=== PATIENT | female | born 1985 | race Caucasian/White ===

== ENCOUNTER 2019-05-08 15:25 | Inpatient (IN) | payer MEDICAID ==
[2019-05-08 16:44] LABS: ADD UMIC NO; UR ASCORBIC ACID NEGATIVE (NEGATIVE); UR BILIRUBIN (Dip) NEGATIVE (NEGATIVE); UR BLOOD (Dip) NEGATIVE (NEGATIVE); UR CLARITY CLEAR (CLEAR); UR COLOR YELLOW (YELLOW); UR GLUCOSE (Dip) NEGATIVE (NEGATIVE); UR KETONES (Dip) NEGATIVE (NEGATIVE); UR LEUKOCYTE ESTERASE (Dip) NEGATIVE Leu/ul (NEGATIVE); UR NITRITE (Dip) NEGATIVE (NEGATIVE); UR SPECIFIC GRAVITY (Dip) 1.004 (1.003-1.030); UR TOTAL PROTEIN (Dip) NEGATIVE (NEGATIVE); UR UROBILINOGEN (Dip) NEGATIVE (NEGATIVE)
[2019-05-08] MEDS ORDERED: MAGNESIUM SULFATE 4 GM/100 ML 100 ML (17:39)
[2019-05-08] MEDS: MAGNESIUM SULFATE 4 GM/100 ML 100 ML IV (17:48)
[2019-05-08] MEDS: LACTATED RINGER'S 1,000 ML IV (17:54)
[2019-05-08 18:08] LABS: ADD MAN DIFF? NO
[2019-05-08 18:09] LABS: BASOPHILS % 0.3 % (0.0-2.0); EOSINOPHILS # 0.1 10^3/ul (0.0-0.5); EOSINOPHILS % 1.2 % (0.0-7.0); HEMATOCRIT 39.4 % (37.0-47.0); HEMOGLOBIN 13.4 g/dl (12.0-16.0); LYMPHOCYTES # 1.6 10^3/ul (0.8-2.9); LYMPHOCYTES % 13.6 % (15.0-51.0); MEAN CORPUSCULAR HEMOGLOBIN 31.7 pg (29.0-33.0); MEAN CORPUSCULAR VOLUME 93.1 fl (82.0-101.0); MEAN PLATELET VOLUME 11.2 fl (7.4-10.4); MONOCYTE # 0.9 10^3/ul (0.3-0.9); MONOCYTES % 7.3 % (0.0-11.0); NEUTROPHILS % 76.8 % (39.0-77.0); PLATELET COUNT 271 10^3/UL (140-415); RED BLOOD COUNT 4.23 10^6/ul (4.20-5.40); RED CELL DISTRIBUTION WIDTH 13.5 % (11.5-14.5)
[2019-05-08 18:09] LABS: WHITE BLOOD COUNT 11.7 10^3/ul (4.8-10.8)
[2019-05-08] MEDS: MAGNESIUM SULFATE 20 GM/500 ML 500 ML IV (18:14)
[2019-05-08 18:34] LABS: INR 0.96; PROTIME 12.9 Sec (11.9-14.9)
[2019-05-08 18:35] LABS: PARTIAL THROMBOPLASTIN TIME 28.6 Sec (23.0-35.0)
[2019-05-08 18:37] LABS: ALANINE AMINOTRANSFERASE 20 IU/L (13-69); ALBUMIN 3.9 g/dl (3.3-4.9); ALBUMIN/GLOBULIN RATIO 0.97; ALKALINE PHOSPHATASE 164 IU/L (42-121); ANION GAP 11 (5-13); ASPARTATE AMINO TRANSFERASE 37 IU/L (15-46); BILIRUBIN,INDIRECT 0.6 mg/dl (0-1.1); BILIRUBIN,TOTAL 0.6 mg/dl (0.2-1.3); BLOOD UREA NITROGEN 9 mg/dl (7-20); CALCIUM 9.3 mg/dl (8.4-10.2); CARBON DIOXIDE 21 mmol/L (21-31); CHLORIDE 103 mmol/L (97-110); CREATININE 0.61 mg/dl (0.44-1.00); Estimated GFR > 60 mL/min (>60); GLUCOSE 70 mg/dl (70-220); POTASSIUM 4.2 mmol/L (3.5-5.1); SODIUM 135 mmol/L (135-144); TOTAL PROTEIN 7.9 g/dl (6.1-8.1)
[2019-05-08] MEDS: BETAMET NA PHOS/AC(6 MG/ML) 2 ML INJ SYG IM (19:58)
[2019-05-08] MEDS: ACETAMINOPHEN 500 MG TAB PO (22:18)
[2019-05-09] MEDS: MAGNESIUM SULFATE 20 GM/500 ML 500 ML IV (03:51)
[2019-05-09] MEDS: LACTATED RINGER'S 1,000 ML IV ×2 (05:43→18:39)
[2019-05-09] MEDS: ACETAMINOPHEN 500 MG TAB PO ×2 (05:47→13:08)
[2019-05-09] MEDS: BETAMET NA PHOS/AC(6 MG/ML) 2 ML INJ SYG IM (08:19)
[2019-05-09 08:57] LABS: MAGNESIUM 5.4 mg/dl (1.7-2.5)
[2019-05-09] MEDS: INDOMETHACIN 50 MG PO (12:18)
[2019-05-09] MEDS ORDERED: NIFEdipine 10 MG CAP (18:18)
[2019-05-09] MEDS ORDERED: SENNA/DOCUSATE NA (8.6MG/50MG) TAB (18:25)
[2019-05-09] MEDS: INDOMETHACIN 25 MG PO ×2 (18:34→23:42)
[2019-05-09] MEDS: NIFEdipine 10 MG CAP PO ×2 (18:35→23:45)
[2019-05-10] MEDS: morphine 2 MG INJ IV (02:13)
[2019-05-10] MEDS: LACTATED RINGER'S 1,000 ML IV (03:26)
[2019-05-10] MEDS: SENNA TAB PO ×2 (03:43→15:00)
[2019-05-10] MEDS: INDOMETHACIN 25 MG PO (05:51)
[2019-05-10] MEDS: NIFEdipine 10 MG CAP PO (05:52)
[2019-05-10] MEDS ORDERED: MAGNESIUM SULFATE 20 GM/500 ML 500 ML IV (08:25)
[2019-05-10] MEDS ORDERED: MAGNESIUM SULFATE 4 GM/100 ML 100 ML (08:25)
[2019-05-10] MEDS: MAGNESIUM SULFATE 4 GM/100 ML 100 ML IV (08:39)
[2019-05-10] MEDS: MAGNESIUM SULFATE 20 GM/500 ML 500 ML IV (08:57)
[2019-05-10] MEDS ORDERED: CEFAZOLIN 2 GM/50 ML (PMX) 50 ML IVPB ×2 (09:32→10:00)
[2019-05-10] MEDS ORDERED: AZITHROMYCIN 500MG/NS (PMX) 250 ML (09:47)
[2019-05-10] MEDS ORDERED: PHENYLephrine (100 MCG/ML) 10ML SYG (09:52)
[2019-05-10] MEDS ORDERED: FENTAnyl 50 MCG/ML VIAL (09:52)
[2019-05-10] MEDS ORDERED: morphine SULFATE/PF (10 MG/10 ML) INJ (09:52)
[2019-05-10] MEDS ORDERED: DEXAMETHASONE 4 MG/ML 1 ML INJ (09:52)
[2019-05-10] MEDS ORDERED: ONDANSETRON 4 MG INJ (09:56)
[2019-05-10] MEDS ORDERED: OXYTOCIN 30 UNITS/LR 500 ML IV ×2 (09:57→14:30)
[2019-05-10] MEDS: AZITHROMYCIN 500MG/NS (PMX) 250 ML IVPB (10:00)
[2019-05-10] MEDS ORDERED: METHYLERGONOVINE 0.2 MG TAB (10:32)
[2019-05-10] MEDS: OXYTOCIN 30 UNITS/LR 500 ML IV ×2 (12:05→16:32)
[2019-05-10] MEDS ORDERED: ONDANSETRON 4 MG INJ IV (12:30)
[2019-05-10] MEDS ORDERED: ZOLPIDEM 5 MG TAB PO (12:30)
[2019-05-10] MEDS ORDERED: HYDROmorphONE 0.5 MG/0.5 ML SYG IV ×2 (12:30)
[2019-05-10] MEDS ORDERED: NALOXONE (0.4 MG/ML) INJ IV (12:30)
[2019-05-10] MEDS ORDERED: METHYLERGONOVINE 0.2 MG INJ IM (14:30)
[2019-05-10] MEDS ORDERED: MISOPROSTOL 200 MCG TAB PR (14:30)
[2019-05-10] MEDS ORDERED: CARBOPROST 250 MCG INJ IM (14:30)
[2019-05-10] MEDS: KETOROLAC 30 MG INJ IV (16:30)
[2019-05-10 19:32] LABS: MAGNESIUM 2.2 mg/dl (1.7-2.5)
[2019-05-10] MEDS: SENNA/DOCUSATE NA (8.6MG/50MG) TAB PO (23:27)
[2019-05-11] MEDS: LACTATED RINGER'S 1,000 ML IV (02:24)
[2019-05-11] MEDS: DIPHENHYDRAMINE 50 MG INJ IV (02:41)
[2019-05-11] MEDS: LANOLIN HPA 1 PKT TOP ×2 (02:41→08:07)
[2019-05-11 08:01] LABS: ADD MAN DIFF? NO
[2019-05-11 08:04] LABS: WHITE BLOOD COUNT 8.3 10^3/ul (4.8-10.8)
[2019-05-11 08:04] LABS: BASOPHILS % 0.1 % (0.0-2.0); HEMATOCRIT 25.3 % (37.0-47.0); HEMOGLOBIN 8.5 g/dl (12.0-16.0); LYMPHOCYTES # 1.3 10^3/ul (0.8-2.9); LYMPHOCYTES % 15.1 % (15.0-51.0); MEAN CORPUSCULAR HGB CONC 33.6 g/dl (32.0-37.0); MEAN CORPUSCULAR VOLUME 95.1 fl (82.0-101.0); MEAN PLATELET VOLUME 10.1 fl (7.4-10.4); MONOCYTE # 0.9 10^3/ul (0.3-0.9); MONOCYTES % 11.4 % (0.0-11.0); NEUTROPHILS % 72.3 % (39.0-77.0); PLATELET COUNT 174 10^3/UL (140-415); RED BLOOD COUNT 2.66 10^6/ul (4.20-5.40); RED CELL DISTRIBUTION WIDTH 13.5 % (11.5-14.5)
[2019-05-11] MEDS: SENNA/DOCUSATE NA (8.6MG/50MG) TAB PO ×2 (08:07→21:00)
[2019-05-11] MEDS: KETOROLAC 30 MG INJ IV (08:08)
[2019-05-11] MEDS: FERROUS SULFATE (EC) 325 MG TAB PO ×2 (13:23→21:00)
[2019-05-11] MEDS: IBUPROFEN 800 MG TAB PO ×2 (13:24→21:00)
[2019-05-11 14:45] LABS: ADD MAN DIFF? NO
[2019-05-11 14:47] LABS: WHITE BLOOD COUNT 7.5 10^3/ul (4.8-10.8)
[2019-05-11 14:47] LABS: BASOPHILS % 0.3 % (0.0-2.0); EOSINOPHILS % 0.1 % (0.0-7.0); HEMATOCRIT 26.1 % (37.0-47.0); HEMOGLOBIN 8.7 g/dl (12.0-16.0); LYMPHOCYTES # 1.3 10^3/ul (0.8-2.9); LYMPHOCYTES % 17.8 % (15.0-51.0); MEAN CORPUSCULAR HGB CONC 33.3 g/dl (32.0-37.0); MEAN PLATELET VOLUME 10.4 fl (7.4-10.4); MONOCYTE # 0.6 10^3/ul (0.3-0.9); MONOCYTES % 7.9 % (0.0-11.0); NEUTROPHIL # 5.4 10^3/ul (1.6-7.5); NEUTROPHILS % 72.6 % (39.0-77.0); PLATELET COUNT 178 10^3/UL (140-415); RED BLOOD COUNT 2.72 10^6/ul (4.20-5.40); RED CELL DISTRIBUTION WIDTH 13.5 % (11.5-14.5)
[2019-05-11] MEDS: OXYCODONE/ACETAMINOPHEN (5/325) TAB PO ×2 (16:31→20:44)
[2019-05-11] MEDS: FOLIC ACID 1 MG TAB PO (16:31)
[2019-05-12 00:11] LABS: HEPATITIS B SURFACE ANTIGEN NEGATIVE (NEGATIVE)
[2019-05-12] MEDS: IBUPROFEN 800 MG TAB PO ×3 (05:37→21:57)
[2019-05-12] MEDS: SENNA/DOCUSATE NA (8.6MG/50MG) TAB PO ×2 (09:00→20:59)
[2019-05-12] MEDS: FERROUS SULFATE (EC) 325 MG TAB PO ×3 (11:26→20:59)
[2019-05-12] MEDS: FOLIC ACID 1 MG TAB PO (11:26)
[2019-05-12] MEDS: OXYCODONE/ACETAMINOPHEN (5/325) TAB PO ×3 (11:27→20:09)
[2019-05-12 16:15] LABS: RAPID PLASMA REAGIN NONREACTIVE (NR)
[2019-05-13] MEDS: OXYCODONE/ACETAMINOPHEN (5/325) TAB PO ×2 (00:37→14:56)
[2019-05-13] MEDS: IBUPROFEN 800 MG TAB PO ×3 (05:41→22:01)
[2019-05-13] MEDS: FOLIC ACID 1 MG TAB PO (08:28)
[2019-05-13] MEDS: FERROUS SULFATE (EC) 325 MG TAB PO ×3 (08:28→22:00)
[2019-05-13] MEDS: SENNA/DOCUSATE NA (8.6MG/50MG) TAB PO ×2 (08:28→22:00)
[2019-05-13] MEDS: DIPHTH/TET/ACEL PERTUSS (ADULT) 0.5 ML VIAL IM* (08:29)
[2019-05-13] MEDS: MAGNESIUM HYDROXIDE 30ML CUP PO (18:00)
[2019-05-14] MEDS: IBUPROFEN 800 MG TAB PO ×2 (06:00→13:31)
[2019-05-14] MEDS: SENNA/DOCUSATE NA (8.6MG/50MG) TAB PO (09:14)
[2019-05-14] MEDS: FOLIC ACID 1 MG TAB PO (09:14)
[2019-05-14] MEDS: FERROUS SULFATE (EC) 325 MG TAB PO ×2 (09:14→13:04)
== END 2019-05-14 18:45 | disposition home or self-care (01) | DRG 787 ==
LOC: OBT 15:25 → L-D 15:25 → OBT 17:47 → L-D 05-10 11:13 → PP1 05-10 14:24
PROC: 10D00Z1 Extraction of Products of Conception, Low, Open Approach (ICD-10-PCS; principal; 2019-05-10 10:00)
DX: O60.14X2 Preterm labor third trimester with preterm delivery third trimester, fetus 2 (principal); O26.873 Cervical shortening, third trimester; O60.14X1 Preterm labor third trimester with preterm delivery third trimester, fetus 1; Z37.2 Twins, both liveborn; O30.033 Twin pregnancy, monochorionic/diamniotic, third trimester; Z3A.29 29 weeks gestation of pregnancy
CPT/HCPCS: 76815; 76817; 76818; 80053; 81003; 82731; 83735; 85025; 85610; 85730; 86592; 86850; 86900; 86901; 87086; 87340; 88307; 90715; 93970; 99464